=== PATIENT | male | born 1955 | race Caucasian/White ===

== ENCOUNTER 2018-06-12 05:51 | Inpatient (IN) | payer OTHER ==
[~2018-06-12] VITALS: Ht 160 cm; Wt 54.8 kg
[2018-06-12 08:35] VITALS: BP 147/88; PULSE 76; RESP 17
[2018-06-12] MEDS ORDERED: ONDANSETRON 4 MG INJ IV PRN (09:00)
[2018-06-12] MEDS ORDERED: NACL 0.9% 3 ML SYG IV SCH (09:00)
[2018-06-12] MEDS ORDERED: ACETAMINOPHEN 325 MG TAB PO PRN (09:00)
[2018-06-12 09:09] VITALS: Ht 160 cm; Wt 54.8 kg
[2018-06-12] MEDS: SOD CHLORIDE 0.9% 1,000 ML IV SCH (11:22)
[2018-06-12] MEDS: CEFTRIAXONE 1 GM/50 ML (PMX) 50 ML IVPB SCH (11:22)
--- NOTE | 2018-06-12 12:16 | HP ---
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 Patient had an elevated white count and presented to the outside facility with periumbilical abdominal pain. CT abdomen and pelvis showed symptoms of cystitis and the urinalysis at the outside facility was consistent with UTI. Patient also had symptoms of urinary urgency and retention and was also complaining about epigastric abdominal pain and cons tipation. Patient also had some mild nausea. Patient feels significantly better now, is able to urinate freely at this time and epigastric pain has resolved somewhat. Patient also has a history of right inguinal hernia which has been present for over a year however is not causing him any symptoms or any pain at this time. Patient and patient's family knows that they need to follow- up with an outpatient physician patient denies chest pain, shortness of breath, headache, vomiting, leg pain at this time Objective Physical exam General: Patient is laying in bed and answers questions appropriately Mentation: Patient is alert and oriented 4, Head: Normocephalic atraumatic Eyes: EOMI, pupils reactive to light Neck: Supple, nontender, midline Respiratory: Clear to auscultation bilaterally Cardiovascular: regular rate, no obvious murmurs Gastrointestinal: Mild tenderness in the periumbilical area, more tenderness in the suprapubic area to palpation, bowel sounds heard. Neurological: Moves all extremities spontaneously Skin: No new skin lesions Assessment and plan UTI -Mildly elevated white count at outside facility, unsure why patient was not treated with outpatient antibiotics given low risk of healthcare acquired infection however patient may have met criteria for sepsis at outside facility that is not quite apparent at this time -We will get blood cultures -UA already sent out positive here as well, urine culture also sent out -Ceftriaxone IV -Pain control Intermittent tremor -Patient on a medication, family will bring to the hospital as soon as possible so we can restart Right hernia, inguinal -Chronic, patient is known for more than a year, arranging outpatient follow-up for surgical repair at this time, asymptomatic Left hernia, inguinal -As above right hernia, this one only has fat Halitosis -Mouthwash as needed Disposition -IV antibiotic, await urine culture before discharge. Results 24hrs Laboratory Tests Test 06/12/18 09:20 Urine Color YELLOW Urine Clarity CLOUDY A Urine pH 6.0 Urine Specific [place] 1.016 Urine Ketones TRACE A Urine Nitrite POSITIVE A Urine Bilirubin NEGATIVE Urine Urobilinogen NEGATIVE Urine Leukocyte Esterase 3+ H Urine Microscopic RBC > 182 H Urine Microscopic WBC > 182 H Urine Bacteria FEW A Urine Mucus FEW A Urine Hemoglobin 2+ H Urine Glucose NEGATIVE Urine Total Protein 2+ H HPI/ROS Admit Date/Time Admit Date/Time Jun 12, 2018 at 08:22 PMH/Family/Social Past Medical History Medications Current Medications Sodium Chloride 1,000 ml @ 40 mls/hr Q24H IV Last administered on 06/12/18at 11:22; Admin Dose 40 MLS/HR; Start 06/12/18 at 08:53; Stop 06/13/18 at 09:52 IV Flush (NS 3 ml) 3 ml PER PROTOCOL IV ; Start 06/12/18 at 09:00 Ondansetron HCl (Zofran Inj) 4 mg Q6H PRN IV NAUSEA/VOMITING; Start 06/12/18 at 09:00 Acetaminophen (Tylenol Tab) 650 mg Q6H PRN PO .PAIN 1-3 OR TEMP; Start 06/12/18 at 09:00 Acetaminophen/ Hydrocodone Bitart ([place] (5/325)) 1 tab Q6H PRN PO .PAIN 4-6; Start 06/12/18 at 09:00 Ceftriaxone Sodium 50 ml @ 100 mls/hr Q24H IVPB Last administered on 06/12/18at 11:22; Admin Dose 100 MLS/HR; Start 06/12/18 at 11:00 Pantoprazole (Protonix Tab) 40 mg DAILY@06 PO ; Start 06/13/18 at 06:00; Status UNV Pantoprazole (Protonix Tab) 40 mg ONCE ONCE PO ; Start 06/12/18 at 12:30; Stop 06/12/18 at 12:31; Status UNV Sucralfate (Carafate Susp) 1 gm QID PO ; Start 06/12/18 at 13:00; Status UNV Coded Allergies: No Known Allergy (Unverified , 06/12/18) Social History Smoking Status: Never smoker Exam/Review of Systems Vital Signs Vitals Vital Signs Date Temp Pulse Resp B/P (MAP) Pulse Ox O2 O2 Flow FiO2 Time Delivery Rate 06/12/18 98.4 76 17 147/88 96 08:35 (107) KARO SALCEDO Jun 12, 2018 12:16
[2018-06-12] MEDS ORDERED: PANTOPRAZOLE (EC) 40 MG TAB PO ONE (12:30)
[2018-06-12] MEDS: SUCRALFATE (100 MG/ML) 10ML CUP PO SCH ×3 (13:00→20:37)
[2018-06-12 13:13] VITALS: BP 151/69; PULSE 82; RESP 18
[2018-06-12 20:30] VITALS: BP 112/70; PULSE 85; RESP 18
[2018-06-12] MEDS: HYDROCODONE/APAP (5/325) TAB PO PRN (20:37)
[2018-06-13 02:30] VITALS: BP 139/73; RESP 18
[2018-06-13] MEDS ORDERED: PANTOPRAZOLE (EC) 40 MG TAB PO SCH (06:00)
[2018-06-13 07:27] VITALS: BP 122/57; PULSE 80; RESP 18
[2018-06-13] MEDS: LEVETIRACETAM 500 MG TAB PO SCH (08:22)
[2018-06-13] MEDS: SUCRALFATE (100 MG/ML) 10ML CUP PO SCH ×4 (08:23→22:24)
[2018-06-13] MEDS: SOD CHLORIDE 0.9% 1,000 ML IV SCH ×2 (08:53→11:41)
--- NOTE | 2018-06-13 11:30 | PN ---
Date/Time of Note Date/Time of Note DATE: 06/13/18 TIME: 11:30 Objective Vitals Vital Signs Date Temp Pulse Resp B/P (MAP) Pulse Ox O2 O2 Flow FiO2 Time Delivery Rate 06/13/18 98.0 80 18 122/57 94 Room Air 07:27 (78) Intake and Output 06/12/18 06/12/18 06/13/18 1515:00 23:00 07:00 IntakeIntake Total 50 ml 860 ml 600 ml OutputOutput Total 500 ml 300 ml BalanceBalance 50 ml 360 ml 300 ml Results Result Diagram: 06/13/18 0419 06/13/18 0419 Medications Medications Current Medications IV Flush (NS 3 ml) 3 ml PER PROTOCOL IV ; Start 06/12/18 at 09:00 Ondansetron HCl (Zofran Inj) 4 mg Q6H PRN IV NAUSEA/VOMITING; Start 06/12/18 at 09:00 Acetaminophen (Tylenol Tab) 650 mg Q6H PRN PO .PAIN 1-3 OR TEMP; Start 06/12/18 at 09:00 Acetaminophen/ Hydrocodone Bitart ([place] (5/325)) 1 tab Q6H PRN PO .PAIN 4-[address] administered on 06/12/18at 20:37; Admin Dose 1 TAB; Start 06/12/18 at 09:00 Ceftriaxone Sodium 50 ml @ 100 mls/hr Q24H IVPB Last administered on 06/12/18at 11:22; Admin Dose 100 MLS/HR; Start 06/12/18 at 11:00 Pantoprazole (Protonix Tab) 40 mg DAILY@06 PO Last administered on 06/13/18at 05:31; Admin Dose 40 MG; Start 06/13/18 at 06:00 Sucralfate (Carafate Susp) 1 gm QID PO Last administered on 06/13/18at 08:23; Admin Dose 1 GM; Start 06/12/18 at 13:00 Levetiracetam (Keppra) 500 mg DAILY PO Last administered on 06/13/18at 08:22; Admin Dose 500 MG; Start 06/13/18 at 09:00 VTE Prophylaxis Risk score (from Ns)>0 risk: 2 SCD applied (from Nsg): Yes Lines/Catheters IV Catheter Type: Nguyen in Place: No Assessment/Plan Hospital Course subjective Patient doing well, abdominal pain has significantly improved Objective Physical exam General: Patient is laying in bed and answers questions appropriately Mentation: Patient is alert and oriented 4, Head: Normocephalic atraumatic Eyes: EOMI, pupils reactive to light Neck: Supple, nontender, midline Respiratory: Clear to auscultation bilaterally Cardiovascular: regular rate, no obvious murmurs Gastrointestinal: Mild tenderness to palpation in the lower quadrants., bowel sounds heard. Neurological: Moves all extremities spontaneously Skin: No new skin lesions Assessment and plan UTI -Mildly elevated white count at outside facility, unsure why patient was not treated with outpatient antibiotics given low risk of healthcare acquired infection however patient may have met criteria for sepsis at outside facility that is not quite apparent at this time -We will get blood cultures -UA already sent out positive here as well, urine culture also sent out -Ceftriaxone IV -Pain control Intermittent tremor -Patient on a medication, family will bring to the hospital as soon as possible so we can restart Right hernia, inguinal -Chronic, patient is known for more than a year, arranging outpatient follow-up for surgical repair at this time, asymptomatic Left hernia, inguinal -As above right hernia, this one only has fat Halitosis -Mouthwash as needed Disposition -IV antibiotic, await urine culture before discharge. KARO SALCEDO Jun 13, 2018 11:30
[2018-06-13] MEDS: CEFTRIAXONE 1 GM/50 ML (PMX) 50 ML IVPB SCH (11:40)
[2018-06-13 15:05] VITALS: BP 128/68; PULSE 82; RESP 18
[2018-06-13] MEDS: PANTOPRAZOLE (EC) 40 MG TAB PO SCH (18:17)
[2018-06-13 19:13] VITALS: BP 116/59; PULSE 62; RESP 16
[2018-06-14] MEDS: HYDROCODONE/APAP (5/325) TAB PO PRN (01:23)
[2018-06-14 02:08] VITALS: BP 133/83; PULSE 98; RESP 18
[2018-06-14] MEDS: PANTOPRAZOLE (EC) 40 MG TAB PO SCH (05:28)
[2018-06-14 07:32] VITALS: BP 138/79; PULSE 79; RESP 18
[2018-06-14] MEDS: SUCRALFATE (100 MG/ML) 10ML CUP PO SCH ×2 (09:17→13:00)
[2018-06-14] MEDS: LEVETIRACETAM 500 MG TAB PO SCH (09:17)
--- NOTE | 2018-06-14 11:34 | DS ---
Date/Time of Note Date/Time of Note DATE: 06/14/18 TIME: 11:28 Discharge Summary Admission/Discharge Info Admit Date/Time Jun 12, 2018 at 08:22 Discharge Date/Time Discharge Diagnosis 63 yo M with a hx of twitching disorder, history of CVA at 9 years old and h istory of right inguinal hernia admitted and managed as follows : 1. Abd pain 2/2 #2 and 3 : resolved 2. Ecoli UTI 3. Constipation 4. Halitosis . Patient Condition: Stable Consults None . Hospital Course 63-year-old male with a history of CVA which likely explains his aphasia and mi ld cognitive deficits who was brought in by family with severe periumbilical abdominal pain and was found by CT scan to have evidence of cystitis and a mild constipation. He was treated with antibiotics and stool softeners and his symptoms improved. At this time, urine grew out E. coli that was pansensitive to multiple antibiotics. He is doing very well and will be discharged on oral Levaquin to complete a 7-day course. Of note is that he did have a low TSH, but this was minimally more low and in the setting of acute disease, likely unreliable. Recommendation is to repeat thyroid function test in the next 2-3 weeks with his primary care doctor. Otherwise patient has been assessed by myself in detail and is stable for discharge. . Primary Care Provider Time spent on discharge: > 30 minutes Pending Labs Laboratory Tests Test 06/13/18 18:18 06/14/18 00:56 06/14/18 05:00 Hemoglobin 14.7 12.9 13.3 g/dl (14.0-18.0) g/dl (14.0-18.0) g/dl (14.0-18.0) Hematocrit 46.4 % (42.0-52.0) 39.0 % (42.0-52.0) 40.3 % (42.0-52.0) White Blood Count 5.8 10^3/ul (4.8-10.8) Red Blood Count 4.82 10^6/ul (4.70-6.10 ) Mean Corpuscular 83.6 Volume fl (82.0-101.0) Mean Corpuscular 27.6 Hemoglobin pg (29.0-33.0) Mean Corpuscular 33.0 Hemoglobin Concent g/dl (32.0-37.0) Red Cell 13.1 % (11.5-14.5) Distribution Width Platelet Count 294 10^3/UL (140-415) Mean Platelet 9.5 fl (7.4-10.4) Volume Immature 0.200 Granulocytes % % (0.001-0.429) Neutrophils % 72.9 % (39.0-77.0) Lymphocytes % 16.6 % (15.0-51.0) Monocytes % 8.8 % (0.0-11.0) Eosinophils % 1.0 % (0.0-7.0) Basophils % 0.5 % (0.0-2.0) Nucleated Red Blood 0.0 Cells % /100WBC (0.0-0.0) Immature 0.010 Granulocytes # 10^3/ul (0.0-0.031 ) Neutrophils # 4.2 10^3/ul (1.6-7.5) Lymphocytes # 1.0 10^3/ul (0.8-2.9) Monocytes # 0.5 10^3/ul (0.3-0.9) Eosinophils # 0.1 10^3/ul (0.0-0.5) Basophils # 0.0 10^3/ul (0.0-0.1) Nucleated Red Blood 0.0 Cells # 10^3/ul (0.0-0.0) Sodium Level 135 mmol/L (135-144) Potassium Level 3.5 mmol/L (3.5-5.1) Chloride Level 99 mmol/L (97-110) Carbon Dioxide 26 mmol/L (21-31) Level Anion Gap 10 (5-13) Blood Urea 11 mg/dl (7-20) Nitrogen Creatinine 0.70 mg/dl (0.61-1.24) Est Glomerular > 60 mL/min (>60) Filtrat Rate mL/min Glucose Level 101 mg/dl (70-220) Calcium Level 9.1 mg/dl (8.4-10.2) Phosphorus Level 4.3 mg/dl (2.5-4.9) Magnesium Level 2.2 mg/dl (1.7-2.5) GILBERTO SANCHEZ Jun 14, 2018 11:34
--- NOTE | 2018-06-14 11:36 | PDOCDIS ---
Discharge Instructions DIAGNOSIS Discharge Diagnosis 63 yo M with a hx of twitching disorder, history of CVA at 9 years old and history of right inguinal hernia admitted and managed as follows : 1. Abd pain 2/2 #2 and 3 : resolved 2. Ecoli UTI 3. Constipation 4. Halitosis . CONDITION [id number] Patient Condition: [id number] Stable HOME CARE INSTRUCTIONS: [id number] Diet Instructions: [id number] Low Fat /Cholesterol ACTIVITY: [id number] Activity Restrictions: [id number] Slowly Increase Activity Rest between Activity FOLLOW UP/APPOINTMENTS Follow-up Plan Followup with your primary doctor within the next 1-2 weeks. You need a repeat thyroid function test in the next 2-3 weeks with your primary care doctor. If you don't have one please let someone know, we can give you resources that may help you pick one. You may call Dr Ventura Jimenez's office. he's accepting new patients Name, Degree: Ventura Jimenez MD Specialty: Internal Medicine Comments: Office Address: [address] [place] [address] Office Office You may also call your insurance company to assign one to you. Review your medication list with your nurse before leaving and if you need new prescriptions please let your nurse know. I may have made changes to your home medications or given you new prescriptions, please let your primary doctor know as well. Stay compliant with your medications and report any side effects to your PCP or pharmacist. Return to the ER if you have any concerns and cannot reach your doctors or call your insurance company, they usually have a nurse that can help you. GILBERTO SANCHEZ Jun 14, 2018 11:36
[2018-06-14] MEDS: CEFTRIAXONE 1 GM/50 ML (PMX) 50 ML IVPB SCH (11:37)
[2018-06-14] MEDS ORDERED: LEVO500T10 PO (11:40)
[2018-06-14] MEDS ORDERED: PANT40TA4 PO (11:40)
[2018-06-14] MEDS ORDERED: DOCU250C58 PO (11:40)
[2018-06-14] MEDS ORDERED: LEVE-5 PO (11:40)
[2018-06-14] MEDS ORDERED: LACT1CAP57 PO (11:40)
[2018-06-14] MEDS ORDERED: CHLO118L3 TOP (11:41)
[2018-06-14 13:55] VITALS: BP 138/72; PULSE 97; RESP 18
== END 2018-06-14 17:00 | disposition home or self-care (01) | DRG 690 ==
LOC: MS1 08:22
PROVIDERS: ADMIT Internal Medicine; ATTEND Family Medicine
DX: N39.0 Urinary tract infection, site not specified (principal); K40.90 Unilateral inguinal hernia, without obstruction or gangrene, not specified as recurrent; R19.6 Halitosis; K59.00 Constipation, unspecified; Z86.73 Personal history of transient ischemic attack (TIA), and cerebral infarction without residual deficits
CPT/HCPCS: 80048; 80053; 80061; 81001; 83036; 83735; 84100; 84443; 85014; 85018; 85025; 87081; 87086; J0696; J7030